=== PATIENT | male | born 1960 | race Caucasian/White ===

== ENCOUNTER 2019-06-18 05:39 | Observation (INO) ==
--- NOTE | 2019-06-12 08:31 | EKG Report ---
Test Performed on : 06/12/2019 08:21:29 AM Test Reason : PAT Blood Pressure : / mmHG Vent. Rate : 051 BPM Atrial Rate : 051 BPM P-R Int : 164 ms QRS Dur : 084 ms QT Int : 450 ms P-R-T Axes : 018 -21 029 degrees QTc Int : 414 ms Sinus bradycardia. Otherwise normal ECG When compared with ECG of 04-FEB-2019 10:57, No significant change was found Confirmed by Blossom Marshall MD ([id number]) on 06/16/2019 9:29:59 PM
[2019-06-12 08:58] LABS: BASO# 0.04 X1000 (0.0-0.2); BASO% 0.6 % (0.0-0.8); EOS# 0.23 X1000 (0.0-0.7); EOS% 3.5 % (0.0-10.0); HEMOGLOBIN 15.4 g/dL (14.0-18.0); IMM GRAN# 0.02 X1000 (0.0-0.04); IMM GRAN% 0.3 % (0.0-0.5); LYMPH# 2.08 X1000 (1.2-3.4); LYMPH% 31.6 % (20.5-51.1); MCH 29.7 PG (27-31); MCHC 33.5 g/dL (33-37); MCV 88.6 FL (81-99); MONO# 0.47 X1000 (0.11-0.59); MONO% 7.1 % (1.7-9.3); MPV 10.2 FL (7.4-10.4); NEUT# 3.75 X1000 (1.4-6.5); NEUT% 56.9 % (42.2-75.2); PLT 185 X1000 (130-400); RBC 5.19 XMIL (4.7-6.1); RDW 14.3 % (11.5-14.5); WBC 6.59 X1000 (4.8-10.8)
[2019-06-12 09:13] LABS: BILIRUBIN URINE NEGATIVE (NEGATIVE); BLOOD URINE NEGATIVE (NEGATIVE); COLOR YELLOW; GLUCOSE URINE NEGATIVE (NEGATIVE); KETONE URINE NEGATIVE (NEGATIVE); LEUKOCYTES URINE NEGATIVE (NEGATIVE); NITRITE URINE NEGATIVE (NEGATIVE); PH URINE 5.5; PROTEIN URINE TRACE mg/dL (NEGATIVE); SP GRAVITY URINE 1.037; TURBIDITY URINE CLEAR (CLEAR); URINE SOURCE CLEAN CATCH; UROBILINOGEN URINE 2 mg/dL (NORMAL)
[2019-06-12 09:16] LABS: UR EPITHELIAL CELLS <10 /HPF (<10); URINE BACTERIA NEGATIVE /HPF; URINE RBC <10 /HPF (<10); URINE WBC <10 /HPF (<10)
[2019-06-12 09:31] LABS: HEMOGLOBIN A1C 5.3 % (4.8-6.0)
[2019-06-12 09:34] LABS: AGAP 11; BUN 27 mg/dL (8-22); CHLORIDE 106 mmol/L (98-107); COSMO 286; CREATININE 1.2 mg/dL (0.7-1.2); ESTIMATED GFR > 60; GLUCOSE 132 mg/dL (70-104); POTASSIUM 4.7 mmol/L (3.5-5.1); SODIUM 140 mmol/L (136-145); TCO2 23 mmol/L (25-35)
[2019-06-12 10:04] LABS: INR 0.99; PROTIME 13.2 Seconds (11.0-16.0); PTT 33.4 Seconds (22.3-41.8)
[2019-06-18] MEDS ORDERED: PEPCID ONE (06:09)
[2019-06-18] MEDS ORDERED: REGLAN ONE (06:09)
[2019-06-18] MEDS ORDERED: COLACE ONE (06:09)
[2019-06-18] MEDS ORDERED: LR 1,000 ML ONE (06:10)
[2019-06-18] MEDS ORDERED: LYRICA ONE ×2 (06:10→06:11)
[2019-06-18] MEDS ORDERED: CELEBREX ONE (06:10)
[2019-06-18] MEDS ORDERED: KEFZOL 1 GM/D5W 2 GM/100 ML IVPB ONE (06:10)
[2019-06-18] MEDS ORDERED: DIPRIVAN 1% ONE ×4 (06:44→09:21)
[2019-06-18] MEDS ORDERED: FENTANYL ONE (06:48)
[2019-06-18] MEDS ORDERED: TORADOL ONE (07:00)
[2019-06-18] MEDS ORDERED: MARCAINE 0.25% PF ONE (07:00)
[2019-06-18] MEDS ORDERED: DURAMORPH ONE (07:00)
[2019-06-18] MEDS ORDERED: VANCOMYCIN ONE (07:00)
[2019-06-18] MEDS ORDERED: CYKLOKAPRON 1,000 MG/NS 1,000 MG/100 ML IVPB ONE ×2 (07:01→07:03)
[2019-06-18] MEDS ORDERED: SODIUM CHLORIDE 0.9% ONE (07:01)
[2019-06-18] MEDS ORDERED: EXPAREL 1.3% ONE (07:01)
[2019-06-18] MEDS ORDERED: NEOSPORIN G.U. IRRIGANT ONE (07:01)
[2019-06-18] MEDS ORDERED: DECADRON ONE (08:18)
[2019-06-18] MEDS ORDERED: ZOFRAN ONE (08:18)
[2019-06-18] MEDS ORDERED: OFIRMEV 1000 MG/ISOTONIC SOLN 1,000 MG/100 ML BOTTLE ONE (08:18)
[2019-06-18] MEDS: DILAUDID ONE ×2 (09:53→09:58)
--- NOTE | 2019-06-18 10:19 | OPERATIVE NOTE ---
PROCEDURE DATE: 06/18/2019 PREOPERATIVE DIAGNOSIS: Degenerative joint disease, right knee. POSTOPERATIVE DIAGNOSIS: Degenerative joint disease, right knee. PROCEDURE PERFORMED: Right total knee replacement. SURGEON: Martin Walton MD. MID LEVEL JAVA DEVELOPER: JORDAN Cabezas. Mr. Diallo was necessary for proper retraction and manipulation of the extremity during the case. ANESTHESIA: Spinal. COMPLICATION: None. PROCEDURE IN DETAIL: A 58-year-old male presents for right total knee replacement. Risks, benefits, and no guarantees were discussed, and he is willing to proceed. He was taken to the operating room and satisfactory spinal anesthesia obtained. The right leg was prepped and draped in usual sterile fashion. A time-out was taken to confirm operative site, procedure, and patient. The leg was wrapped with an Esmarch and tourniquet inflated to 350 mmHg. A midline incision was made over the front of the knee followed by a quad tendon sparing arthrotomy. The patella was everted and resurfaced with freehand technique and subluxed laterally. With the knee flexed, an intramedullary hole was made in the distal femur, and the distal femoral cutting block secured in 5 degrees of valgus with intramedullary alignment. Distal femoral resection was made and the femur sized to a DePuy Attune size 8 femoral implant. The 4-in-1 block was secured and the anterior, posterior, and chamfer cuts sequentially made. A notch was created for posterior stabilized design using provided notch guide. Any remaining osteophytes were debrided. The knee was flexed and a PCL retractor placed behind the tibia to protect the neurovascular bundle. The tibial cutting block was secured with extramedullary alignment, and the tibial resection made noted to be equal flexion/ extension gaps with a 7 mm spacer. The tibia sized to a size 8 tibial tray. Trial reduction was performed with trial components with good range of motion and stability. The patella was sized to a 38 medialized dome patella. The lug holes were placed for the patella and femoral implants, and all trial components removed. The bony surfaces were thoroughly irrigated with pulsatile lavage and dried. Cement with a gram of vancomycin was utilized to cement a DePuy Attune size 8 rotating platform tibial base plate, a size 8 posterior stabilized right femoral component, and a 38 medialized dome patella. Excess cement was removed with a [place] elevator. While the cement cured, the joint capsule was injected with Exparel and a Hemovac drain placed. The arthrotomy was then irrigated and a size 8, 7 mm posterior stabilized rotating platform polyethylene bearing was secured in the tibial tray and the knee reduced. Final range of motion was 0 to 130 degrees with midline patellar tracking and excellent soft tissue balance. The arthrotomy was copiously irrigated and closed over the drain with #1 Vicryl in the arthrotomy, 2-0 Vicryl in the subcutaneous and skin jose on the skin edges. Sterile dressings completed the closure and the patient was recovered from anesthesia and transferred to the recovery room in stable condition. No intraoperative complications were noted. Instrument count and sponge count was correct at the time of closure. cc: José Walton MD
--- NOTE | 2019-06-18 10:36 | Diag Imaging Result Doc PS360 ---
EXAM: KNEE 1-2 VIEWS-RIGHT HISTORY: rt tka TECHNIQUE: Right knee two views COMPARISON: None. FINDINGS: There has been orthopedic replacement of the right knee. There are anterior skin jose and a superior surgical drain. No fracture. No dislocation. IMPRESSION: Recently replaced right knee with good alignment to the femoral and tibial components. Electronically signed by Teo Johnson 06/18/2019 10:34 AM
[2019-06-18] MEDS ORDERED: NS 1,000 ML ONE (10:39)
--- NOTE | 2019-06-18 10:53 | ORTHOPAEDICS PROGRESS NOTE ---
DATE: 06/18/2019 SUBJECTIVE DATA: Mr. Ortiz is seen on postoperative day 0 of his right total knee arthroplasty. He states he is doing well at this time. He is seen in the recovery room and he is fully awake. OBJECTIVE DATA: There is good sensation to the right lower extremity. There is good capillary refill. The bandages are clean and dry. Vital signs are stable with some mild bradycardia down to 41. LABS: Within normal limits. ASSESSMENT: Degenerative joint disease right knee with total knee arthroplasty. PLAN: Will plan to monitor Mr. Ortiz while he is in the hospital tonight. We will check back on him in the morning. If he is doing well, will likely send him home then. Dictated by JORDAN Cabezas for José Walton MD cc: JORADN Cabezas MD
[2019-06-18] MEDS ORDERED: ZOFRAN IV PRN (11:15)
[2019-06-18] MEDS ORDERED: MORPHINE IV PRN ×3 (11:15)
[2019-06-18] MEDS: ULTRAM PO SCH ×2 (15:13→21:46)
[2019-06-18] MEDS: NS 1,000 ML IV SCH ×2 (15:14→21:50)
[2019-06-18] MEDS: KEFZOL 2 GM/D5W 2 GM/50 ML IVPB IV SCH (15:14)
[2019-06-18] MEDS: TYLENOL PO SCH ×2 (15:14→21:45)
[2019-06-18] MEDS: OXY IR PO PRN (17:45)
[2019-06-18] MEDS ORDERED: DESYREL PO SCH (21:00)
[2019-06-18] MEDS ORDERED: MELATONIN PO SCH (21:00)
[2019-06-18] MEDS: CELEBREX PO SCH (21:45)
[2019-06-18] MEDS: COLACE PO SCH (21:45)
[2019-06-18] MEDS: PERIDEX MT SCH (21:46)
[2019-06-19] MEDS: OXY IR PO PRN ×3 (00:06→08:33)
[2019-06-19] MEDS: KEFZOL 2 GM/D5W 2 GM/50 ML IVPB IV SCH (00:07)
[2019-06-19] MEDS: NS 1,000 ML IV SCH (01:44)
[2019-06-19] MEDS: TYLENOL PO SCH ×2 (03:35→08:27)
[2019-06-19] MEDS: ULTRAM PO SCH ×2 (03:35→08:27)
[2019-06-19 05:35] LABS: HEMATOCRIT 41.9 % (42.0-52.0); HEMOGLOBIN 14.2 g/dL (14.0-18.0)
[2019-06-19 05:58] LABS: AGAP 9; BUN 16 mg/dL (8-22); CALCIUM 9.2 mg/dL (8.8-10.2); CHLORIDE 106 mmol/L (98-107); COSMO 284; CREATININE 0.7 mg/dL (0.7-1.2); ESTIMATED GFR > 60; GLUCOSE 168 mg/dL (70-104); POTASSIUM 4.5 mmol/L (3.5-5.1); SODIUM 140 mmol/L (136-145); TCO2 25 mmol/L (25-35)
[2019-06-19] MEDS ORDERED: PRILOSEC PO SCH (07:00)
[2019-06-19 07:42] VITALS: BP 128/66
--- NOTE | 2019-06-19 07:42 | ORTHOPAEDICS PROGRESS NOTE ---
DATE: 06/19/2019 Mr. Ortiz is seen today status post total knee replacement. At the present time, he is afebrile with stable vital signs. Hematocrit is stable. There are no signs of active bleeding about his knee incision. There are no signs of swelling or DVT. He is mobilized today with Physical Therapy. He can be discharged after he is seen by therapy. We have arranged home health for him. He is to continue his regular home medicines, as well as aspirin 325 daily for DVT prophylaxis, Bactrim DS b.i.d. for a week for wound prophylaxis, and [place] 10 as needed for pain. Will see him back in roughly 2 weeks for staple removal, or sooner for any worsening signs or symptoms. cc: José Walton MD
[2019-06-19] MEDS: CELEBREX PO SCH (08:26)
[2019-06-19] MEDS: PERIDEX MT SCH (08:26)
[2019-06-19] MEDS: COLACE PO SCH (08:27)
[2019-06-19] MEDS ORDERED: PEPCID PO SCH (09:00)
[2019-06-19] MEDS ORDERED: LOPRESSOR PO SCH (09:00)
[2019-06-19] MEDS ORDERED: ASPIRIN PO SCH (09:00)
== END 2019-06-19 11:13 | disposition home health service (06) ==
LOC: 4N 05:39 → OR 05:39
PROVIDERS: ADMIT Orthopaedic Surgery Adult Reconstructive Orthopaedic Surgery; ATTEND Orthopaedic Surgery Adult Reconstructive Orthopaedic Surgery